=== PATIENT | male | born 1975 | race American Indian/Alaskan Native ===

== ENCOUNTER 2021-07-31 13:34 | Outpatient (CLI) | payer OTHER ==
[2021-07-31] MEDS ORDERED: LIDOCAINE (4%) 40 MG/ML TOPICAL SOLN 50 ML BOTTLE TP ONE (14:38)
== END 2021-07-31 13:35 | disposition home or self-care (01) ==
LOC: WOUND 13:34 → MERGE 13:34 → WOUND 13:35
PROVIDERS: ATTEND Surgery
DX: S81.801D Unspecified open wound, right lower leg, subsequent encounter (principal); I87.311 Chronic venous hypertension (idiopathic) with ulcer of right lower extremity; L97.812 Non-pressure chronic ulcer of other part of right lower leg with fat layer exposed; Z79.899 Other long term (current) drug therapy; W22.03XD Walked into furniture, subsequent encounter

== ENCOUNTER 2021-08-07 13:08 | Outpatient (CLI) | payer OTHER ==
[2021-08-07] MEDS ORDERED: LIDOCAINE (4%) 40 MG/ML TOPICAL SOLN 50 ML BOTTLE TP ONE (14:00)
== END 2021-08-07 13:09 | disposition home or self-care (01) ==
LOC: WOUND 13:08
PROVIDERS: ATTEND Surgery
DX: S81.801D Unspecified open wound, right lower leg, subsequent encounter (principal); I87.311 Chronic venous hypertension (idiopathic) with ulcer of right lower extremity; L97.812 Non-pressure chronic ulcer of other part of right lower leg with fat layer exposed; Z79.899 Other long term (current) drug therapy; W22.03XD Walked into furniture, subsequent encounter
CPT/HCPCS: 99214; G0463

== ENCOUNTER 2021-08-19 13:26 | Outpatient (CLI) | payer OTHER ==
[2021-08-19] MEDS ORDERED: LIDOCAINE (4%) 40 MG/ML TOPICAL SOLN 50 ML BOTTLE TP ONE ×2 (13:38→18:54)
== END 2021-08-19 13:27 | disposition home or self-care (01) ==
LOC: WOUND 13:26
PROVIDERS: ATTEND Surgery
DX: S81.801D Unspecified open wound, right lower leg, subsequent encounter (principal); I87.311 Chronic venous hypertension (idiopathic) with ulcer of right lower extremity; L97.812 Non-pressure chronic ulcer of other part of right lower leg with fat layer exposed; Z79.899 Other long term (current) drug therapy; W22.03XD Walked into furniture, subsequent encounter

== ENCOUNTER 2021-09-02 13:34 | Outpatient (CLI) | payer OTHER ==
[2021-09-02] MEDS ORDERED: LIDOCAINE (4%) 40 MG/ML TOPICAL SOLN 50 ML BOTTLE TP ONE (13:38)
== END 2021-09-02 13:35 | disposition home or self-care (01) ==
LOC: WOUND 13:34
PROVIDERS: ATTEND Surgery
DX: S81.801D Unspecified open wound, right lower leg, subsequent encounter (principal); I87.311 Chronic venous hypertension (idiopathic) with ulcer of right lower extremity; L97.812 Non-pressure chronic ulcer of other part of right lower leg with fat layer exposed; Z79.899 Other long term (current) drug therapy; W22.03XD Walked into furniture, subsequent encounter

== ENCOUNTER 2021-09-16 13:00 | Outpatient (CLI) | payer OTHER ==
[2021-09-16] MEDS ORDERED: LIDOCAINE (4%) 40 MG/ML TOPICAL SOLN 50 ML BOTTLE TP SCH (14:30)
== END 2021-09-16 13:01 | disposition home or self-care (01) ==
LOC: WOUND 13:00
PROVIDERS: ATTEND Surgery
DX: S81.801D Unspecified open wound, right lower leg, subsequent encounter (principal); I87.311 Chronic venous hypertension (idiopathic) with ulcer of right lower extremity; L97.812 Non-pressure chronic ulcer of other part of right lower leg with fat layer exposed; Z79.899 Other long term (current) drug therapy; W22.03XD Walked into furniture, subsequent encounter
CPT/HCPCS: 99214; G0463

== ENCOUNTER 2021-10-14 13:27 | Outpatient (CLI) | payer OTHER ==
[2021-10-14] MEDS ORDERED: LIDOCAINE (4%) 40 MG/ML TOPICAL SOLN 50 ML BOTTLE TP ONE (13:33)
[2021-10-29] MEDS ORDERED: LIDOCAINE (4%) 40 MG/ML TOPICAL SOLN 50 ML BOTTLE TP ONE (08:54)
[2021-10-29] MEDS ORDERED: VITAMIN A & D OINT 56.7 GM TP SCH (10:00)
== END 2021-10-14 13:28 | disposition home or self-care (01) ==
LOC: WOUND 13:27
PROVIDERS: ATTEND Surgery
DX: S81.801D Unspecified open wound, right lower leg, subsequent encounter (principal); I87.311 Chronic venous hypertension (idiopathic) with ulcer of right lower extremity; L97.812 Non-pressure chronic ulcer of other part of right lower leg with fat layer exposed; I89.0 Lymphedema, not elsewhere classified; Z79.899 Other long term (current) drug therapy; W22.03XD Walked into furniture, subsequent encounter

== ENCOUNTER 2021-10-28 13:31 | Outpatient (CLI) | payer OTHER ==
[2021-10-28] MEDS ORDERED: LIDOCAINE (4%) 40 MG/ML TOPICAL SOLN 50 ML BOTTLE TP ONE (13:39)
[2021-10-28] MEDS ORDERED: VITAMIN A & D OINT 56.7 GM TP SCH (17:00)
== END 2021-10-28 13:32 | disposition home or self-care (01) ==
LOC: WOUND 13:31
PROVIDERS: ATTEND Surgery
DX: I87.311 Chronic venous hypertension (idiopathic) with ulcer of right lower extremity (principal); L97.812 Non-pressure chronic ulcer of other part of right lower leg with fat layer exposed; S81.801D Unspecified open wound, right lower leg, subsequent encounter; I89.0 Lymphedema, not elsewhere classified; Z79.899 Other long term (current) drug therapy; W22.03XD Walked into furniture, subsequent encounter

== ENCOUNTER 2021-11-18 13:01 | Outpatient (CLI) | payer OTHER ==
[2021-11-18] MEDS ORDERED: VITAMIN A & D OINT 56.7 GM TP SCH (14:00)
[2021-11-18] MEDS ORDERED: LIDOCAINE (4%) 40 MG/ML TOPICAL SOLN 50 ML BOTTLE TP ONE (14:00)
== END 2021-11-18 13:02 | disposition home or self-care (01) ==
LOC: WOUND 13:01
PROVIDERS: ATTEND Surgery
DX: S81.801D Unspecified open wound, right lower leg, subsequent encounter (principal); I87.311 Chronic venous hypertension (idiopathic) with ulcer of right lower extremity; L97.812 Non-pressure chronic ulcer of other part of right lower leg with fat layer exposed; I89.0 Lymphedema, not elsewhere classified; Z79.899 Other long term (current) drug therapy; W22.03XD Walked into furniture, subsequent encounter
CPT/HCPCS: 99213; G0463

== ENCOUNTER 2021-12-05 13:38 | Outpatient (CLI) | payer OTHER | END 2021-12-05 13:39 | disposition home or self-care (01) | LOC: WOUND 13:38 | PROVIDERS: ATTEND Internal Medicine | DX: I87.311 Chronic venous hypertension (idiopathic) with ulcer of right lower extremity (principal); L97.811 Non-pressure chronic ulcer of other part of right lower leg limited to breakdown of skin; I89.0 Lymphedema, not elsewhere classified; Z79.899 Other long term (current) drug therapy | CPT/HCPCS: 29580 ==

== ENCOUNTER 2021-12-13 13:00 | Outpatient (CLI) | payer OTHER | END 2021-12-13 13:01 | disposition home or self-care (01) | LOC: WOUND 13:00 | PROVIDERS: ATTEND Surgery | DX: I87.311 Chronic venous hypertension (idiopathic) with ulcer of right lower extremity (principal); L97.812 Non-pressure chronic ulcer of other part of right lower leg with fat layer exposed; I89.0 Lymphedema, not elsewhere classified; Z79.899 Other long term (current) drug therapy | CPT/HCPCS: 29580 ==

== ENCOUNTER 2021-12-16 14:00 | Outpatient (CLI) | payer OTHER ==
[2021-12-16] MEDS ORDERED: LIDOCAINE (4%) 40 MG/ML TOPICAL SOLN 50 ML BOTTLE TP SCH (14:29)
== END 2021-12-16 14:01 | disposition home or self-care (01) ==
LOC: WOUND 14:00
PROVIDERS: ATTEND Surgery
DX: I87.311 Chronic venous hypertension (idiopathic) with ulcer of right lower extremity (principal); L97.812 Non-pressure chronic ulcer of other part of right lower leg with fat layer exposed; I89.0 Lymphedema, not elsewhere classified; Z79.899 Other long term (current) drug therapy

== ENCOUNTER 2021-12-23 14:31 | Outpatient (CLI) | payer OTHER | END 2021-12-23 14:32 | disposition home or self-care (01) | LOC: WOUND 14:31 | PROVIDERS: ATTEND Surgery | DX: I87.311 Chronic venous hypertension (idiopathic) with ulcer of right lower extremity (principal); L97.812 Non-pressure chronic ulcer of other part of right lower leg with fat layer exposed; I89.0 Lymphedema, not elsewhere classified; Z79.899 Other long term (current) drug therapy | CPT/HCPCS: 29580; G0463; 99211 ==

== ENCOUNTER 2022-01-02 08:49 | Outpatient (CLI) | payer OTHER ==
[2022-01-02] MEDS ORDERED: LIDOCAINE (4%) 40 MG/ML TOPICAL SOLN 50 ML BOTTLE TP ONE (09:29)
== END 2022-01-02 08:50 | disposition home or self-care (01) ==
LOC: WOUND 08:49
PROVIDERS: ATTEND Surgery
DX: I87.311 Chronic venous hypertension (idiopathic) with ulcer of right lower extremity (principal); L97.812 Non-pressure chronic ulcer of other part of right lower leg with fat layer exposed; I89.0 Lymphedema, not elsewhere classified; Z79.899 Other long term (current) drug therapy

== ENCOUNTER 2022-01-09 13:49 | Outpatient (CLI) | payer OTHER | END 2022-01-09 13:50 | disposition home or self-care (01) | LOC: WOUND 13:49 | PROVIDERS: ATTEND Surgery | DX: I87.311 Chronic venous hypertension (idiopathic) with ulcer of right lower extremity (principal); L97.811 Non-pressure chronic ulcer of other part of right lower leg limited to breakdown of skin; I89.0 Lymphedema, not elsewhere classified; Z79.899 Other long term (current) drug therapy | CPT/HCPCS: 29580 ==

== ENCOUNTER 2022-01-13 09:22 | Outpatient (CLI) | payer OTHER ==
[2022-01-13] MEDS ORDERED: LIDOCAINE (4%) 40 MG/ML TOPICAL SOLN 50 ML BOTTLE TP ONE (10:00)
== END 2022-01-13 09:23 | disposition home or self-care (01) ==
LOC: WOUND 09:22
PROVIDERS: ATTEND Surgery
DX: I87.311 Chronic venous hypertension (idiopathic) with ulcer of right lower extremity (principal); L97.811 Non-pressure chronic ulcer of other part of right lower leg limited to breakdown of skin; Z79.899 Other long term (current) drug therapy
CPT/HCPCS: 29580